=== PATIENT | male | born 1945 | race Caucasian/White ===

== ENCOUNTER → 2017-04-26 | Day surgery (SDC) | payer MEDICARE, BC ==
[~2017-04-26] MED LIST: ACETAMINOPHEN/HYDROcodone 325 MG/5 MG TAB ONE; BUPIVACAINE HCL PF 0.25% 30 ML VIAL INFIL ONE; KETOROLAC TROMETHAMINE 30 MG/ML (IVP) VIAL IV PUSH ONE; LACTATED RINGER'S 1000 ML INJ 1,000 ML ONE; LYRI150C PO; ONDANSETRON HCL 4 MG/2 ML VIAL IV PUSH ONE; PROPOFOL 200 MG/20 ML AMP IV ONE; TAMS0.4C67 PO; VANCOMYCIN HCL 1000 MG VIAL ONE; [UNRECOGNIZED DRUG - OTHER] SQ; ceFAZolin 2 GM PREMIX 50 ML ONE
--- NOTE | 2017-04-26 15:01 | TN ---
cc: JOSE RAUL LAMBERT M.D. DATE OF SURGERY: 04/26/2017 PREOPERATIVE DIAGNOSIS Giant incarcerated left inguinal hernia. POSTOPERATIVE DIAGNOSIS Giant incarcerated left inguinal hernia. PROCEDURE PERFORMED Reduction and primary repair giant incarcerated left inguinal hernia. SURGEON Jose Raul Lambert STONE UNLOADER JOSELYN Hyde ANESTHESIA General LMA. COMPLICATIONS None. INDICATION FOR PROCEDURE Mr. Mendiola is a very pleasant 71-year-old gentleman who presented to the office today with an incarcerated left inguinal hernia. He was originally scheduled for his elective office consultation tomorrow but his called the office this morning stating that he lifted something heavy and developed acute pain and swelling in the left groin and he was unable to reduce his hernia. He came into the office right away where he was evaluated. The patient was found have a giant left inguinal scrotal hernia with obvious bowel contents in the left hemiscrotum. I attempted manual reduction in the office but the patient was very uncomfortable. I advised him I would recommend immediate repair to limit the risk of bowel compromise. The patient and his were agreeable. DETAILS OF PROCEDURE The patient was identified, brought to the operating room and placed supine on the operating table. After adequate general anesthesia was achieved with LMA the left groin and genitals were prepped and draped in standard surgical fashion. A timeout was taken. 0.25% Marcaine was injected in the skin and subcutaneous tissue in the left groin. A transverse incision was made directly overlying the left groin down to the giant hernia. Subcutaneous tissues was dissected with electrocautery Bovie. Dissecting down to the hernia it was obvious that all tissue planes had been destroyed by this giant hernia which had likely been there for quite some time. Immediately we dissected right down onto a very thickened and large hernia sac and the cord structures. These were carefully dissected from surrounding tissue. A Yuri drain was then used to encircle the hernia sac and the cord structures and left testicle. Next, the hernia sac was opened and identified. Bowel contents were easily reduced back into the abdominal cavity spontaneously. Once we did this we carefully dissected the thickened hernia sac off of the cord structures and left hemiscrotum. Once the cord structures were dissected free the testicle was returned back into the left hemiscrotum with care to make sure that it was not twisted. Next, the hernia sac was followed back proximally and this appeared to be a large direct defect with completed obliteration of the inguinal floor just lateral to the pubic bone. The hernia sac was carefully inspected. There were no bowel contents within it at this time. A small amount of serous fluid was noted and this was suctioned out. The hernia sac was completely dissected off the cord structures. It was then twisted and ligated at its base using a 2-0 Vicryl suture. The distal sac was then excised with electrocautery Bovie and discarded. Once we did this the hernia sac retracted back into the abdominal cavity. Attention was now directed to repair. Because the patient had incarceration with bowel I elected not to place mesh due to the risk of infection. I therefore performed a primary repair. The inguinal floor was reconstructed by sewing down the external oblique to the shelving edge of the inguinal ligament with minimal tension. Once we did this the floor was completely repaired. The cord structures were left in place. The left testicle was brought back up into the operative field one more time to check it and it was viable with no evidence of compromise and it was put back in the left hemiscrotum. The wound was then copiously irrigated with normal saline solution. Additional local anesthetic was then injected into the wound. The wound was then closed in layers using 2-0 Vicryl, 3-0 Vicryl and 4-0 Vicryl for the skin. The patient tolerated the procedure well, was awakened and brought to Recovery in stable condition. Please note the WOOL WASHER desk assistant was medically necessary due the complexity of the case, her specialized surgical skills, and knowledge of my surgical technique. MD SALEEM Aparicio/CRUZ /2:42 PM /2:49 PM MAIKEL
== END | disposition home or self-care (01) ==
LOC: ESDC 12:06
PROVIDERS: ATTEND Surgery Trauma Surgery
DX: K40.30 Unilateral inguinal hernia, with obstruction, without gangrene, not specified as recurrent (principal)
CPT/HCPCS: 00830; 49507; J1885; J2405; J3010; J3370; J7120; J0690